=== PATIENT | female | born 2000 | race African-American/Black ===

== ENCOUNTER 2024-08-06 08:53 | Emergency (ER) | payer OTHER ==
[~2024-08-06] VITALS: Ht 157.5 cm; Wt 74.3 kg
[2024-08-06] MEDS ORDERED: ALBU8.5H INH (09:13)
[2024-08-06] MEDS ORDERED: ISOVUE-370 76% 100ML VIAL As Ordered ONE (09:18)
[2024-08-06] MEDS: BOOSTRIX VACCINE (TETANUS/DIPHTH/ACEL. PERTUSSIS) 0.5ML SYR IM.IMMUN ONE (09:29)
[2024-08-06] MEDS: COMBIVENT RESPIMAT 100-20MCG INHALER 4GM INH STA (09:35)
[2024-08-06] MEDS: IBUPROFEN 600MG TAB PO ONE (10:39)
[2024-08-06 11:21] VITALS: BP 137/82; TEMP 98.5; O2SAT 97
== END 2024-08-06 11:25 | disposition home or self-care (01) ==
LOC: EDBD 08:53 → M ED 08:53
DX: S50.12XA Contusion of left forearm, initial encounter (principal); S70.02XA Contusion of left hip, initial encounter; S30.1XXA Contusion of abdominal wall, initial encounter; V49.9XXA Car occupant (driver) (passenger) injured in unspecified traffic accident, initial encounter; Y92.9 Unspecified place or not applicable; Y93.9 Activity, unspecified; Y99.9 Unspecified external cause status; J45.909 Unspecified asthma, uncomplicated
CPT/HCPCS: 70450; 73090; 73502; 74177; 80047; 90471; 90715; 94640; 99284; Q9967